=== PATIENT | male | born 1990 | race African-American/Black ===

== ENCOUNTER 2019-05-12 18:30 | Inpatient (IN) | payer MEDICAID ==
[2019-05-12] MEDS: LACTATED RINGER'S 1,000 ML IV (19:10)
[2019-05-12] MEDS: HYDROmorphONE 1 MG/ML SYG IV (19:10)
[2019-05-12] MEDS: BELLADONNA/PHENOBARBITAL TAB PO (19:10)
[2019-05-12] MEDS: SOD CHLORIDE 0.9% 1,000 ML IV ×2 (19:10→22:32)
[2019-05-12] MEDS: ONDANSETRON 4 MG INJ IV (19:10)
[2019-05-12] MEDS: LIDOCAINE/MYLANTA 40 ML BTL PO (19:10)
[2019-05-12 19:22] LABS: ADD MAN DIFF? NO
[2019-05-12 19:24] LABS: WHITE BLOOD COUNT 6.1 10^3/ul (4.8-10.8)
[2019-05-12 19:24] LABS: ABNORMAL IP MESSAGE 1; BASOPHILS % 0.2 % (0.0-2.0); HEMATOCRIT 34.2 % (42.0-52.0); HEMOGLOBIN 11.3 g/dl (14.0-18.0); LYMPHOCYTES # 0.3 10^3/ul (0.8-2.9); LYMPHOCYTES % 4.8 % (15.0-51.0); MEAN CORPUSCULAR HEMOGLOBIN 28.2 pg (29.0-33.0); MEAN CORPUSCULAR VOLUME 85.3 fl (82.0-101.0); MEAN PLATELET VOLUME 11.2 fl (7.4-10.4); MONOCYTE # 0.3 10^3/ul (0.3-0.9); MONOCYTES % 4.8 % (0.0-11.0); NEUTROPHIL # 5.5 10^3/ul (1.6-7.5); NEUTROPHILS % 89.9 % (39.0-77.0); PLATELET COUNT 209 10^3/UL (140-415); POSITIVE DIFF @See below; RED BLOOD COUNT 4.01 10^6/ul (4.70-6.10); RED CELL DISTRIBUTION WIDTH 12.9 % (11.5-14.5)
[2019-05-12 19:43] LABS: ALANINE AMINOTRANSFERASE 79 IU/L (13-69); ALBUMIN 4.1 g/dl (3.3-4.9); ALBUMIN/GLOBULIN RATIO 0.85; ALKALINE PHOSPHATASE 86 IU/L (42-121); ANION GAP 14 (5-13); ASPARTATE AMINO TRANSFERASE 93 IU/L (15-46); BILIRUBIN,INDIRECT 0.6 mg/dl (0-1.1); BILIRUBIN,TOTAL 0.6 mg/dl (0.2-1.3); BLOOD UREA NITROGEN 16 mg/dl (7-20); CALCIUM 9.7 mg/dl (8.4-10.2); CARBON DIOXIDE 25 mmol/L (21-31); CHLORIDE 98 mmol/L (97-110); Estimated GFR > 60 mL/min (>60); GLUCOSE 144 mg/dl (70-220); INR 0.99; LIPASE 79 U/L (23-300); POTASSIUM 3.7 mmol/L (3.5-5.1); PROTIME 13.2 Sec (11.9-14.9); SODIUM 137 mmol/L (135-144); TOTAL PROTEIN 8.9 g/dl (6.1-8.1)
[2019-05-12 19:44] LABS: PARTIAL THROMBOPLASTIN TIME 30.6 Sec (23.0-35.0)
[2019-05-12] MEDS: CEFTRIAXONE 1 GM/50 ML (PMX) 50 ML IVPB (20:31)
[2019-05-12 20:50] LABS: Allen Test ACCEPTAB; Arterial Base Excess 0.2 mmol/L (-3.0-3); Arterial Blood Gas Oxygen Sat 98.5 mmHG (95.0-98.0); Arterial COHb 0.3 % (0.0-3.0); Arterial HCO3 18.4 mmol/L (22.0-26.0); Arterial MetHb 0.2 % (0.0-1.5); Arterial pCO2 15.4 mmhg (35-45); MODE ROOM AIR; Site Left Radial
[2019-05-12] MEDS: AZITHROMYCIN 500MG/NS (PMX) 250 ML IVPB (21:07)
[2019-05-12] MEDS ORDERED: VANCOMYCIN IV PER PHARMACY XX (22:00)
[2019-05-12] MEDS ORDERED: NACL 0.9% 3 ML SYG IV (22:00)
[2019-05-12] MEDS: LORAZEPAM 2 MG INJ IV (22:13)
[2019-05-12 22:16] LABS: HAAIG REFLEX REFLEX FILED
[2019-05-12] MEDS: PIPER-TAZO 3.375 GM IV (PMX) 100 ML IVPB (22:33)
[2019-05-12] MEDS: TRIMETHOPRIM/SULFAMETHOX (DS) TAB PO (22:33)
[2019-05-12] MEDS: VANCOMYCIN 1 GM in 250 ML IVPB (23:10)
[2019-05-12 23:11] LABS: HEPATITIS B SURFACE ANTIGEN NEGATIVE (NEGATIVE)
[2019-05-12 23:26] LABS: HIV 1&2 ANTIBODY REACTIVE (NEGATIVE)
[2019-05-12 23:29] LABS: HEPATITIS B CORE ANTIBODY NEGATIVE (NEGATIVE); HEPATITIS C VIRAL ANTIBODY NEGATIVE (NEGATIVE)
[2019-05-12 23:30] LABS: HEPATITIS B SURFACE ANTIBODY POSITIVE (NEGATIVE)
[2019-05-13] MEDS: PIPER-TAZO 3.375 GM IV (PMX) 100 ML IVPB ×5 (01:40→23:51)
[2019-05-13] MEDS: HYDROmorphONE 0.5 MG/0.5 ML SYG IV (01:40)
[2019-05-13 05:57] LABS: ADD MAN DIFF? NO
[2019-05-13 05:57] LABS: WHITE BLOOD COUNT 4.7 10^3/ul (4.8-10.8)
[2019-05-13 05:58] LABS: ABNORMAL IP MESSAGE 1; BASOPHILS % 0.2 % (0.0-2.0); HEMATOCRIT 29.4 % (42.0-52.0); HEMOGLOBIN 9.5 g/dl (14.0-18.0); LYMPHOCYTES # 0.3 10^3/ul (0.8-2.9); LYMPHOCYTES % 7.2 % (15.0-51.0); MEAN CORPUSCULAR HEMOGLOBIN 28.3 pg (29.0-33.0); MEAN CORPUSCULAR HGB CONC 32.3 g/dl (32.0-37.0); MEAN CORPUSCULAR VOLUME 87.5 fl (82.0-101.0); MEAN PLATELET VOLUME 10.8 fl (7.4-10.4); MONOCYTE # 0.3 10^3/ul (0.3-0.9); MONOCYTES % 5.9 % (0.0-11.0); NEUTROPHIL # 4.1 10^3/ul (1.6-7.5); NEUTROPHILS % 86.5 % (39.0-77.0); PLATELET COUNT 180 10^3/UL (140-415); POSITIVE DIFF @See below; RED BLOOD COUNT 3.36 10^6/ul (4.70-6.10); RED CELL DISTRIBUTION WIDTH 13.2 % (11.5-14.5)
[2019-05-13 06:23] LABS: HEMOGLOBIN A1C 6.1 % (0-5.9)
[2019-05-13 06:38] LABS: ALANINE AMINOTRANSFERASE 67 IU/L (13-69); ALBUMIN 2.9 g/dl (3.3-4.9); ALBUMIN/GLOBULIN RATIO 0.72; ALKALINE PHOSPHATASE 60 IU/L (42-121); ANION GAP 7 (5-13); ASPARTATE AMINO TRANSFERASE 67 IU/L (15-46); BILIRUBIN,INDIRECT 0.2 mg/dl (0-1.1); BILIRUBIN,TOTAL 0.2 mg/dl (0.2-1.3); BLOOD UREA NITROGEN 13 mg/dl (7-20); CALCIUM 8.5 mg/dl (8.4-10.2); CARBON DIOXIDE 29 mmol/L (21-31); CHLORIDE 102 mmol/L (97-110); CREATININE 0.82 mg/dl (0.61-1.24); Estimated GFR > 60 mL/min (>60); GLUCOSE 110 mg/dl (70-220); MAGNESIUM 1.9 mg/dl (1.7-2.5); POTASSIUM 4.3 mmol/L (3.5-5.1); SODIUM 138 mmol/L (135-144); TOTAL PROTEIN 6.9 g/dl (6.1-8.1)
[2019-05-13 06:45] LABS: C-REACTIVE PROTEIN 6.4 mg/dl (0.0-0.9)
[2019-05-13 07:31] LABS: ERYTHROCYTE SEDIMENTATION RATE 83 mm/Hr (0-15)
[2019-05-13 07:44] LABS: PROCALCITONIN 0.18 ng/mL (0.00-0.10)
[2019-05-13] MEDS: ACETAMINOPHEN 325 MG TAB PO ×2 (08:18→16:01)
[2019-05-13] MEDS ORDERED: TRIMETHOPRIM/SULFAMETHOX (DS) TAB PO (09:00)
[2019-05-13] MEDS ORDERED: OLANZAPINE 2.5 MG TAB PO (09:00)
[2019-05-13] MEDS: AZITHROMYCIN 600 MG TAB PO ×2 (09:00→23:51)
[2019-05-13] MEDS ORDERED: EMTRICITABINE/TENOFOV ALAFENAM 1 EACH TABLET PO (09:00)
[2019-05-13] MEDS: ENOXAPARIN 40 MG/0.4 ML SYG SC (09:00)
[2019-05-13 09:16] LABS: AADO2 Arterial 28.8 mmHg (7.0-24.0); Arterial Base Excess -0.8 mmol/L (-3.0-3); Arterial Blood Gas Oxygen Sat 96.2 mmHG (95.0-98.0); Arterial COHb 0.3 % (0.0-3.0); Arterial Fraction of Oxyhgb 95.3 % (93.0-99.0); Arterial HCO3 22.4 mmol/L (22.0-26.0); Arterial MetHb 0.6 % (0.0-1.5); Arterial pCO2 31.1 mmhg (35-45); MODE ROOM AIR; Site Right Brachial
[2019-05-13] MEDS: DOLUTEGRAVIR SODIUM 50 MG TABLET PO (10:41)
[2019-05-13] MEDS: VANCOMYCIN 500 MG (PMX) 100 ML IVPB (10:41)
[2019-05-13] MEDS: TRIMETHOPRIM/SULFAMETHOXAZOLE 15 ML in DEXTROSE 5% 500 ML IVPB ×2 (13:17→21:48)
[2019-05-13] MEDS: SOD CHLORIDE 0.9% 1,000 ML IV ×2 (13:17→22:44)
[2019-05-13] MEDS: FLUCONAZOLE 400 MG/NS (PMX) 200 ML IVPB (15:56)
[2019-05-13] MEDS: OLANZAPINE 5 MG TAB PO (21:11)
[2019-05-13 22:04] LABS: VANCOMYCIN,TROUGH 5.3 ug/ml (10.0-20.0)
[2019-05-13] MEDS ORDERED: VANCOMYCIN 1 GM 250 ML IVPB (22:30)
[2019-05-13] MEDS: VANCOMYCIN 1 GM 250 ML IVPB (23:51)
[2019-05-14] MEDS: HYDROmorphONE 1 MG/ML SYG IV ×3 (02:56→20:35)
[2019-05-14] MEDS: TRIMETHOPRIM/SULFAMETHOXAZOLE 15 ML in DEXTROSE 5% 500 ML IVPB ×3 (05:12→21:37)
[2019-05-14] MEDS: PIPER-TAZO 3.375 GM IV (PMX) 100 ML IVPB ×3 (05:13→17:39)
[2019-05-14] MEDS: ENOXAPARIN 40 MG/0.4 ML SYG SC (09:00)
[2019-05-14] MEDS: VANCOMYCIN 1 GM 250 ML IVPB (09:48)
[2019-05-14 10:06] LABS: ADD MAN DIFF? NO
[2019-05-14 10:13] LABS: WHITE BLOOD COUNT 3.7 10^3/ul (4.8-10.8)
[2019-05-14 10:13] LABS: ABNORMAL IP MESSAGE 1; HEMATOCRIT 27.8 % (42.0-52.0); HEMOGLOBIN 8.9 g/dl (14.0-18.0); LYMPHOCYTES # 0.3 10^3/ul (0.8-2.9); LYMPHOCYTES % 8.5 % (15.0-51.0); MEAN CORPUSCULAR HEMOGLOBIN 27.6 pg (29.0-33.0); MEAN CORPUSCULAR VOLUME 86.1 fl (82.0-101.0); MEAN PLATELET VOLUME 10.6 fl (7.4-10.4); MONOCYTE # 0.2 10^3/ul (0.3-0.9); MONOCYTES % 5.5 % (0.0-11.0); NEUTROPHIL # 3.1 10^3/ul (1.6-7.5); NEUTROPHILS % 85.7 % (39.0-77.0); PLATELET COUNT 170 10^3/UL (140-415); RED BLOOD COUNT 3.23 10^6/ul (4.70-6.10); RED CELL DISTRIBUTION WIDTH 13.2 % (11.5-14.5)
[2019-05-14 10:48] LABS: ALANINE AMINOTRANSFERASE 50 IU/L (13-69); ALBUMIN 2.5 g/dl (3.3-4.9); ALBUMIN/GLOBULIN RATIO 0.75; ALKALINE PHOSPHATASE 46 IU/L (42-121); ANION GAP 6 (5-13); ASPARTATE AMINO TRANSFERASE 41 IU/L (15-46); BILIRUBIN,INDIRECT 0.3 mg/dl (0-1.1); BILIRUBIN,TOTAL 0.3 mg/dl (0.2-1.3); BLOOD UREA NITROGEN 8 mg/dl (7-20); CALCIUM 8.2 mg/dl (8.4-10.2); CARBON DIOXIDE 27 mmol/L (21-31); CHLORIDE 102 mmol/L (97-110); CREATININE 0.91 mg/dl (0.61-1.24); Estimated GFR > 60 mL/min (>60); GLUCOSE 109 mg/dl (70-220); IRON 22 ug/dl (35-150); POTASSIUM 3.8 mmol/L (3.5-5.1); SODIUM 135 mmol/L (135-144); TOTAL PROTEIN 5.8 g/dl (6.1-8.1)
[2019-05-14 10:56] LABS: VANCOMYCIN,TROUGH 6.7 ug/ml (10.0-20.0)
[2019-05-14 10:58] LABS: % IRON SATURATION 11 % SAT (22-52); TOTAL IRON BINDING CAPACITY 192 ug/dl (241-421)
[2019-05-14] MEDS: PANTOPRAZOLE (EC) 40 MG TAB PO (15:41)
[2019-05-14] MEDS: FLUCONAZOLE 400 MG/NS (PMX) 200 ML IVPB (15:41)
[2019-05-14] MEDS: VANCOMYCIN 500 MG (PMX) 100 ML IVPB (18:24)
[2019-05-14] MEDS: ONDANSETRON 4 MG INJ IV (18:29)
[2019-05-14 19:08] LABS: RAPID PLASMA REAGIN NONREACTIVE (NR)
[2019-05-14] MEDS: OLANZAPINE 5 MG TAB PO (20:34)
[2019-05-14] MEDS: NACL 3% FOR INHALATION 15 ML NEBU NEB (21:49)
[2019-05-14 21:54] LABS: S PNEUMONAIE AG DETECT SOURCE SERUM; S PNEUMONAIE AG DETECTION NOT DETECTED
[2019-05-14] MEDS: SODIUM CL 0.9% FOR INHALATION 5 ML NEBU INH (21:54)
[2019-05-14 22:31] LABS: SITE Left Upper Forearm; TIME 2225
[2019-05-14] MEDS: SOD CHLORIDE 0.9% 1,000 ML IV (23:44)
[2019-05-15] MEDS: PIPER-TAZO 3.375 GM IV (PMX) 100 ML IVPB ×4 (00:13→17:28)
[2019-05-15] MEDS: VANCOMYCIN 500 MG (PMX) 100 ML IVPB ×3 (02:10→17:29)
[2019-05-15] MEDS: HYDROmorphONE 1 MG/ML SYG IV (04:23)
[2019-05-15] MEDS: SODIUM CL 0.9% FOR INHALATION 5 ML NEBU INH (05:09)
[2019-05-15] MEDS: TRIMETHOPRIM/SULFAMETHOXAZOLE 15 ML in DEXTROSE 5% 500 ML IVPB ×3 (05:18→22:34)
[2019-05-15] MEDS: SOD CHLORIDE 0.9% 1,000 ML IV ×3 (05:18→13:14)
[2019-05-15 05:51] LABS: ADD MAN DIFF? NO
[2019-05-15 06:04] LABS: WHITE BLOOD COUNT 5.3 10^3/ul (4.8-10.8)
[2019-05-15 06:04] LABS: ABNORMAL IP MESSAGE 1; BASOPHILS % 0.2 % (0.0-2.0); EOSINOPHILS % 0.4 % (0.0-7.0); HEMATOCRIT 27.4 % (42.0-52.0); HEMOGLOBIN 8.8 g/dl (14.0-18.0); LYMPHOCYTES # 0.3 10^3/ul (0.8-2.9); LYMPHOCYTES % 5.2 % (15.0-51.0); MEAN CORPUSCULAR HEMOGLOBIN 27.7 pg (29.0-33.0); MEAN CORPUSCULAR HGB CONC 32.1 g/dl (32.0-37.0); MEAN CORPUSCULAR VOLUME 86.2 fl (82.0-101.0); MONOCYTE # 0.3 10^3/ul (0.3-0.9); MONOCYTES % 5.1 % (0.0-11.0); NEUTROPHIL # 4.7 10^3/ul (1.6-7.5); NEUTROPHILS % 88.7 % (39.0-77.0); PLATELET COUNT 179 10^3/UL (140-415); POSITIVE DIFF @See below; RED BLOOD COUNT 3.18 10^6/ul (4.70-6.10); RED CELL DISTRIBUTION WIDTH 13.4 % (11.5-14.5)
[2019-05-15] MEDS: PANTOPRAZOLE (EC) 40 MG TAB PO (06:28)
[2019-05-15 06:45] LABS: ALANINE AMINOTRANSFERASE 40 IU/L (13-69); ALBUMIN 2.9 g/dl (3.3-4.9); ALKALINE PHOSPHATASE 49 IU/L (42-121); ANION GAP 9 (5-13); ASPARTATE AMINO TRANSFERASE 26 IU/L (15-46); BILIRUBIN,INDIRECT 0.1 mg/dl (0-1.1); BILIRUBIN,TOTAL 0.1 mg/dl (0.2-1.3); BLOOD UREA NITROGEN 5 mg/dl (7-20); CALCIUM 8.5 mg/dl (8.4-10.2); CARBON DIOXIDE 25 mmol/L (21-31); CHLORIDE 103 mmol/L (97-110); CREATININE 0.88 mg/dl (0.61-1.24); Estimated GFR > 60 mL/min (>60); GLUCOSE 91 mg/dl (70-220); POTASSIUM 3.6 mmol/L (3.5-5.1); SODIUM 137 mmol/L (135-144); TOTAL PROTEIN 6.5 g/dl (6.1-8.1)
[2019-05-15] MEDS: ENOXAPARIN 40 MG/0.4 ML SYG SC (08:43)
[2019-05-15] MEDS: FLUCONAZOLE 400 MG/NS (PMX) 200 ML IVPB (13:14)
[2019-05-15] MEDS: HYDROmorphONE 0.5 MG/0.5 ML SYG IV ×2 (13:22→21:12)
[2019-05-15 17:45] LABS: VANCOMYCIN,TROUGH < 5.0 ug/ml (10.0-20.0)
[2019-05-15] MEDS: OLANZAPINE 5 MG TAB PO (21:10)
[2019-05-15] MEDS: VANCOMYCIN 750 MG (PMX) 250 ML IVPB (21:16)
[2019-05-16] MEDS: HYDROmorphONE 1 MG/ML SYG IV ×2 (00:09→12:27)
[2019-05-16] MEDS: TRIMETHOPRIM/SULFAMETHOXAZOLE 15 ML in DEXTROSE 5% 500 ML IVPB ×3 (04:56→20:57)
[2019-05-16] MEDS: PANTOPRAZOLE (EC) 40 MG TAB PO (05:10)
[2019-05-16] MEDS: PIPER-TAZO 3.375 GM IV (PMX) 100 ML IVPB ×4 (05:10→18:21)
[2019-05-16] MEDS ORDERED: FLUCYTOSINE (10 MG/ML PO SYG) PO (07:30)
[2019-05-16] MEDS: ENOXAPARIN 40 MG/0.4 ML SYG SC (09:00)
[2019-05-16] MEDS: ACETAMINOPHEN 325 MG TAB PO ×2 (09:25)
[2019-05-16] MEDS: DIPHENHYDRAMINE 25 MG CAP PO (09:25)
[2019-05-16] MEDS: AMPHOTERICIN B LIPOSOME 300 MG in DEXTROSE 5% 300 ML IVPB (10:20)
[2019-05-16 11:22] LABS: WHITE BLOOD COUNT 1.3 10^3/ul (4.8-10.8)
[2019-05-16 11:22] LABS: ABNORMAL IP MESSAGE 1; HEMATOCRIT 26.1 % (42.0-52.0); HEMOGLOBIN 8.5 g/dl (14.0-18.0); MEAN CORPUSCULAR HEMOGLOBIN 27.6 pg (29.0-33.0); MEAN CORPUSCULAR HGB CONC 32.6 g/dl (32.0-37.0); MEAN CORPUSCULAR VOLUME 84.7 fl (82.0-101.0); MEAN PLATELET VOLUME 11.1 fl (7.4-10.4); PLATELET COUNT 156 10^3/UL (140-415); POSITIVE DIFF @See below; RED BLOOD COUNT 3.08 10^6/ul (4.70-6.10); RED CELL DISTRIBUTION WIDTH 13.4 % (11.5-14.5)
[2019-05-16 11:29] LABS: ADD MAN DIFF? YES
[2019-05-16 11:40] LABS: ALANINE AMINOTRANSFERASE 37 IU/L (13-69); ALBUMIN 2.6 g/dl (3.3-4.9); ALBUMIN/GLOBULIN RATIO 0.74; ALKALINE PHOSPHATASE 49 IU/L (42-121); ANION GAP 9 (5-13); ASPARTATE AMINO TRANSFERASE 25 IU/L (15-46); BILIRUBIN,INDIRECT 0.2 mg/dl (0-1.1); BILIRUBIN,TOTAL 0.2 mg/dl (0.2-1.3); BLOOD UREA NITROGEN 3 mg/dl (7-20); CALCIUM 8.5 mg/dl (8.4-10.2); CARBON DIOXIDE 24 mmol/L (21-31); CHLORIDE 102 mmol/L (97-110); CREATININE 0.82 mg/dl (0.61-1.24); Estimated GFR > 60 mL/min (>60); GLUCOSE 99 mg/dl (70-220); POTASSIUM 3.4 mmol/L (3.5-5.1); SODIUM 135 mmol/L (135-144); TOTAL PROTEIN 6.1 g/dl (6.1-8.1)
[2019-05-16 12:46] LABS: BAND NEUTROPHILS #M 0.2 10^3/ul (0.0-0.6); BAND NEUTROPHILS % (M) 23 % (0-4); BASOPHILS % (M) 1 % (0-2); BURR CELLS 1+ (0-0); EOSINOPHILS % (M) 1 % (0-7); GIANT THROMBO% (M) 4 % (0-0); LYMPHOCYTES #M 0.1 10^3/ul (0.8-2.9); LYMPHOCYTES % (M) 15 % (15-51); MONOCYTES % (M) 5 % (0-11); MYELOCYTES % (M) 1 % (0-0); PLATELET ESTIMATE NORMAL; POIKILOCYTOSIS 1+ (0-0); REACTIVE LYMPHOCYTES% (M) 6 % (0-0); SEG NEUT #M 0.6 10^3/ul (1.6-7.5); SEGMENTED NEUTROPHILS (M) % 48 % (39-77); SMUDGE%M 10 % (0-0)
[2019-05-16] MEDS ORDERED: FLUCYTOSINE 250 MG CAPSULE PO (13:30)
[2019-05-16 14:31] LABS: LYMPHOCYTE - % CD4 (HELPER) 14 % (30-61); LYMPHOCYTE - %CD8 (SUPPRESSOR) 62 % (12-42); LYMPHOCYTE - ABSOLUTE 325 cells/uL (850-3900); LYMPHOCYTE - ABSOLUTE CD4 46 cells/uL (490-1740); LYMPHOCYTE - ABSOLUTE CD8 201 cells/uL (180-1170); LYMPHOCYTE - CD4/CD8 RATIO 0.23 (0.86-5.00)
[2019-05-16] MEDS: FLUCYTOSINE 250 MG CAPSULE PO ×2 (14:33→20:57)
[2019-05-16 17:22] LABS: CSF RBC 0 /uL (0-0); CSF WBC 1 /cmm (0-10); CSF WBC 2 /cmm (0-10)
[2019-05-16 17:38] LABS: CSF CLARITY CLEAR; CSF COLOR COLORLESS; CSF VOLUME 5.7 ml; CSF#TUBE COUNT TUBE#1; CSF#TUBES REC'D 3
[2019-05-16 17:39] LABS: CSF COLOR COLORLESS
[2019-05-16 17:39] LABS: CSF CLARITY CLEAR; CSF VOLUME 5.7 ml; CSF#TUBES REC'D 3
[2019-05-16 17:41] LABS: CSF#TUBE COUNT TUBE#4
[2019-05-16 18:18] LABS: TOTAL PROTEIN,CSF 35 mg/dl (12-60)
[2019-05-16 18:18] LABS: GLUCOSE,CSF 63 mg/dl (50-80)
[2019-05-16] MEDS: HYDROmorphONE 0.5 MG/0.5 ML SYG IV (18:22)
[2019-05-16 20:07] LABS: NIL 0.13 IU/mL; QUANTIFERON(R)-TB GOLD INDETERMINATE (NEGATIVE); TB2-NIL <0.00 IU/mL; TOXOPLASMA ANTIBODY <7.20 IU/mL
[2019-05-16] MEDS: OLANZAPINE 5 MG TAB PO (20:56)
[2019-05-16 22:13] LABS: FORTY EIGHT HOUR READING 0 mm (0-9)
[2019-05-17] MEDS: HYDROmorphONE 0.5 MG/0.5 ML SYG IV ×4 (00:59→21:32)
[2019-05-17] MEDS: PIPER-TAZO 3.375 GM IV (PMX) 100 ML IVPB ×4 (00:59→18:13)
[2019-05-17] MEDS: FLUCYTOSINE 250 MG CAPSULE PO ×2 (00:59→06:22)
[2019-05-17] MEDS: TRIMETHOPRIM/SULFAMETHOXAZOLE 15 ML in DEXTROSE 5% 500 ML IVPB ×3 (05:35→21:32)
[2019-05-17] MEDS: PANTOPRAZOLE (EC) 40 MG TAB PO (06:22)
[2019-05-17] MEDS: ACETAMINOPHEN 325 MG TAB PO ×2 (08:55→21:31)
[2019-05-17] MEDS: DIPHENHYDRAMINE 25 MG CAP PO (08:56)
[2019-05-17] MEDS: ENOXAPARIN 40 MG/0.4 ML SYG SC (09:00)
[2019-05-17] MEDS: AMPHOTERICIN B LIPOSOME 300 MG in DEXTROSE 5% 300 ML IVPB (09:40)
[2019-05-17 12:04] LABS: ADD UMIC NO; UR ASCORBIC ACID NEGATIVE (NEGATIVE); UR BILIRUBIN (Dip) NEGATIVE (NEGATIVE); UR BLOOD (Dip) NEGATIVE (NEGATIVE); UR CLARITY CLEAR (CLEAR); UR COLOR STRAW (YELLOW); UR GLUCOSE (Dip) NEGATIVE (NEGATIVE); UR KETONES (Dip) NEGATIVE (NEGATIVE); UR LEUKOCYTE ESTERASE (Dip) NEGATIVE Leu/ul (NEGATIVE); UR NITRITE (Dip) NEGATIVE (NEGATIVE); UR SPECIFIC GRAVITY (Dip) 1.009 (1.003-1.030); UR TOTAL PROTEIN (Dip) NEGATIVE (NEGATIVE); UR UROBILINOGEN (Dip) NEGATIVE (NEGATIVE)
[2019-05-17 12:20] LABS: AMPHETAMINE/METHAMPHETAMINE Negative (NEGATIVE); BARBITURATES Negative (NEGATIVE); BENZODIAZEPINES Negative (NEGATIVE); CANNABINOIDS Positive (NEGATIVE); COCAINE Negative (NEGATIVE); OPIATES Negative (NEGATIVE)
[2019-05-17 14:27] LABS: CRYPTOCOCCAL ANTIGEN - SOURCE SERUM; MYCOPLASMA PNEUMONIAE AB (IGG) 1.47
[2019-05-17] MEDS: DOCUSATE SODIUM 100 MG CAP PO (18:13)
[2019-05-17] MEDS ORDERED: DOCUSATE SODIUM 100 MG CAP PO (21:00)
[2019-05-17 21:08] LABS: SEVENTY TWO HOUR READING 0 mm (0-9)
[2019-05-17] MEDS: OLANZAPINE 5 MG TAB PO (21:30)
[2019-05-18] MEDS: PIPER-TAZO 3.375 GM IV (PMX) 100 ML IVPB ×5 (00:26→22:19)
[2019-05-18] MEDS: TRIMETHOPRIM/SULFAMETHOXAZOLE 15 ML in DEXTROSE 5% 500 ML IVPB ×3 (05:26→22:14)
[2019-05-18] MEDS: PANTOPRAZOLE (EC) 40 MG TAB PO (05:26)
[2019-05-18] MEDS: ONDANSETRON 4 MG INJ IV (08:14)
[2019-05-18] MEDS: HYDROmorphONE 1 MG/ML SYG IV ×4 (08:15→22:23)
[2019-05-18] MEDS: ENOXAPARIN 40 MG/0.4 ML SYG SC (08:15)
[2019-05-18] MEDS: ACETAMINOPHEN 325 MG TAB PO ×2 (09:55→10:25)
[2019-05-18] MEDS: DIPHENHYDRAMINE 25 MG CAP PO (09:55)
[2019-05-18] MEDS: FLUCONAZOLE 200 MG TAB PO (09:56)
[2019-05-18 13:37] LABS: CRYPTOCOCCAL ANTIGEN - SOURCE SERUM
[2019-05-18 17:47] LABS: ADD MAN DIFF? NO
[2019-05-18 17:49] LABS: WHITE BLOOD COUNT 4.9 10^3/ul (4.8-10.8)
[2019-05-18 17:49] LABS: ABNORMAL IP MESSAGE 1; BASOPHILS % 0.2 % (0.0-2.0); EOSINOPHILS % 0.2 % (0.0-7.0); HEMATOCRIT 25.7 % (42.0-52.0); HEMOGLOBIN 8.3 g/dl (14.0-18.0); LYMPHOCYTES # 0.6 10^3/ul (0.8-2.9); MEAN CORPUSCULAR HGB CONC 32.3 g/dl (32.0-37.0); MEAN CORPUSCULAR VOLUME 86.8 fl (82.0-101.0); MEAN PLATELET VOLUME 10.4 fl (7.4-10.4); MONOCYTE # 0.4 10^3/ul (0.3-0.9); MONOCYTES % 8.9 % (0.0-11.0); NEUTROPHIL # 3.8 10^3/ul (1.6-7.5); NEUTROPHILS % 78.3 % (39.0-77.0); PLATELET COUNT 227 10^3/UL (140-415); POSITIVE DIFF @See below; RED BLOOD COUNT 2.96 10^6/ul (4.70-6.10); RED CELL DISTRIBUTION WIDTH 13.8 % (11.5-14.5)
[2019-05-18 18:06] LABS: ANION GAP 10 (5-13); BLOOD UREA NITROGEN 8 mg/dl (7-20); CALCIUM 8.5 mg/dl (8.4-10.2); CARBON DIOXIDE 23 mmol/L (21-31); CHLORIDE 98 mmol/L (97-110); CREATININE 0.72 mg/dl (0.61-1.24); Estimated GFR > 60 mL/min (>60); GLUCOSE 95 mg/dl (70-220); POTASSIUM 3.1 mmol/L (3.5-5.1); SODIUM 131 mmol/L (135-144)
[2019-05-18 18:11] LABS: LACTIC ACID 2.2 mmol/L (0.5-2.0)
[2019-05-18] MEDS ORDERED: POTASSIUM CHLORIDE 20 MEQ POWDER FOR ORAL SOLN (18:53)
[2019-05-18 19:35] LABS: PNEUM JIROVECCI SRC SPUTUM; PNEUMOCYSTIS JIROVECCI DFA NOT DETECTED
[2019-05-18] MEDS: POTASSIUM CHLORIDE 20 MEQ POWDER FOR ORAL SOLN PO (20:47)
[2019-05-18] MEDS: OLANZAPINE 5 MG TAB PO (20:48)
[2019-05-18] MEDS: SOD CHLORIDE 0.9% 500 ML IV (22:14)
[2019-05-18 22:33] LABS: PROCALCITONIN 0.19 ng/mL (0.00-0.10)
[2019-05-19] MEDS: HYDROmorphONE 1 MG/ML SYG IV ×5 (02:27→21:35)
[2019-05-19] MEDS: PIPER-TAZO 3.375 GM IV (PMX) 100 ML IVPB ×2 (06:03→11:37)
[2019-05-19] MEDS: TRIMETHOPRIM/SULFAMETHOXAZOLE 15 ML in DEXTROSE 5% 500 ML IVPB ×3 (06:03→22:42)
[2019-05-19] MEDS: PANTOPRAZOLE (EC) 40 MG TAB PO (06:03)
[2019-05-19] MEDS: ONDANSETRON 4 MG INJ IV (07:48)
[2019-05-19 08:05] LABS: ADD MAN DIFF? NO
[2019-05-19 08:11] LABS: WHITE BLOOD COUNT 6.5 10^3/ul (4.8-10.8)
[2019-05-19 08:11] LABS: BASOPHILS % 0.2 % (0.0-2.0); EOSINOPHILS % 0.5 % (0.0-7.0); HEMATOCRIT 27.9 % (42.0-52.0); HEMOGLOBIN 8.9 g/dl (14.0-18.0); MEAN CORPUSCULAR HEMOGLOBIN 27.2 pg (29.0-33.0); MEAN CORPUSCULAR HGB CONC 31.9 g/dl (32.0-37.0); MEAN CORPUSCULAR VOLUME 85.3 fl (82.0-101.0); MEAN PLATELET VOLUME 10.6 fl (7.4-10.4); MONOCYTE # 0.5 10^3/ul (0.3-0.9); MONOCYTES % 8.1 % (0.0-11.0); NEUTROPHIL # 4.9 10^3/ul (1.6-7.5); NEUTROPHILS % 74.7 % (39.0-77.0); PLATELET COUNT 268 10^3/UL (140-415); RED BLOOD COUNT 3.27 10^6/ul (4.70-6.10); RED CELL DISTRIBUTION WIDTH 13.9 % (11.5-14.5)
[2019-05-19 08:42] LABS: Estimated GFR > 60 mL/min (>60)
[2019-05-19 08:52] LABS: BLOOD UREA NITROGEN 5 mg/dl (7-20); CARBON DIOXIDE 24 mmol/L (21-31); CHLORIDE 102 mmol/L (97-110); GLUCOSE 88 mg/dl (70-220); POTASSIUM 4.2 mmol/L (3.5-5.1)
[2019-05-19 08:53] LABS: ANION GAP 9 (5-13); SODIUM 135 mmol/L (135-144)
[2019-05-19 08:55] LABS: LACTIC ACID 2.3 mmol/L (0.5-2.0)
[2019-05-19] MEDS: ENOXAPARIN 40 MG/0.4 ML SYG SC (09:00)
[2019-05-19] MEDS: FLUCONAZOLE 200 MG TAB PO (09:04)
[2019-05-19] MEDS: DRONABINOL 2.5 MG CAP PO ×2 (11:37→21:29)
[2019-05-19] MEDS: IBUPROFEN 600 MG TAB PO (11:37)
[2019-05-19] MEDS: CALCIUM CARBONATE 500 MG CHEW TAB PO ×2 (13:31→18:01)
[2019-05-19 16:06] LABS: HISTOPLASMA GALACTOMANNAN AG U <0.5
[2019-05-19] MEDS: AMPHOTERICIN B LIPOSOME 300 MG in DEXTROSE 5% 300 ML IVPB (17:54)
[2019-05-19] MEDS: ACETAMINOPHEN 325 MG TAB PO (18:02)
[2019-05-19] MEDS ORDERED: DIPHENHYDRAMINE 25 MG CAP PO (19:00)
[2019-05-19] MEDS: OLANZAPINE 5 MG TAB PO (21:29)
[2019-05-20] MEDS: HYDROmorphONE 1 MG/ML SYG IV (04:06)
[2019-05-20] MEDS: TRIMETHOPRIM/SULFAMETHOXAZOLE 15 ML in DEXTROSE 5% 500 ML IVPB ×2 (05:17→13:00)
[2019-05-20] MEDS: PANTOPRAZOLE (EC) 40 MG TAB PO (05:20)
[2019-05-20] MEDS: ENOXAPARIN 40 MG/0.4 ML SYG SC (09:00)
[2019-05-20] MEDS: FLUCONAZOLE 200 MG TAB PO (09:03)
[2019-05-20] MEDS: CALCIUM CARBONATE 500 MG CHEW TAB PO ×2 (09:03→12:37)
[2019-05-20] MEDS: ONDANSETRON 4 MG INJ IV (09:06)
[2019-05-20] MEDS: DRONABINOL 2.5 MG CAP PO (09:06)
[2019-05-20] MEDS ORDERED: ALBUTEROL/IPRATROPIUM (NEB) 3 ML AMP HHN (10:00)
[2019-05-20] MEDS ORDERED: GUAIFENESIN 20 MG/ML 5ML CUP PO (10:00)
[2019-05-20] MEDS ORDERED: CEPASTAT LOZENGE MT (10:00)
[2019-05-20 10:30] LABS: ADD MAN DIFF? NO
[2019-05-20 10:32] LABS: ABNORMAL IP MESSAGE 1; HEMATOCRIT 24.3 % (42.0-52.0); LYMPHOCYTES # 0.4 10^3/ul (0.8-2.9); LYMPHOCYTES % 8.4 % (15.0-51.0); MEAN CORPUSCULAR HEMOGLOBIN 27.7 pg (29.0-33.0); MEAN CORPUSCULAR HGB CONC 32.9 g/dl (32.0-37.0); MEAN CORPUSCULAR VOLUME 84.1 fl (82.0-101.0); MEAN PLATELET VOLUME 10.5 fl (7.4-10.4); MONOCYTE # 0.2 10^3/ul (0.3-0.9); MONOCYTES % 4.8 % (0.0-11.0); NEUTROPHIL # 3.9 10^3/ul (1.6-7.5); NEUTROPHILS % 85.9 % (39.0-77.0); PLATELET COUNT 243 10^3/UL (140-415); POSITIVE DIFF @See below; RED BLOOD COUNT 2.89 10^6/ul (4.70-6.10); RED CELL DISTRIBUTION WIDTH 13.9 % (11.5-14.5)
[2019-05-20 10:32] LABS: WHITE BLOOD COUNT 4.6 10^3/ul (4.8-10.8)
[2019-05-20 10:57] LABS: ANION GAP 7 (5-13); BLOOD UREA NITROGEN 10 mg/dl (7-20); CALCIUM 8.7 mg/dl (8.4-10.2); CARBON DIOXIDE 25 mmol/L (21-31); CHLORIDE 98 mmol/L (97-110); CREATININE 0.85 mg/dl (0.61-1.24); Estimated GFR > 60 mL/min (>60); GLUCOSE 99 mg/dl (70-220); SODIUM 130 mmol/L (135-144)
[2019-05-20 10:58] LABS: PHOSPHORUS 3.2 mg/dl (2.5-4.9)
[2019-05-20 10:58] LABS: MAGNESIUM 1.3 mg/dl (1.7-2.5)
[2019-05-21] MEDS ORDERED: FLUCONAZOLE 200 MG TAB PO (09:00)
== END 2019-05-20 15:17 | disposition left against medical advice (07) | DRG 97 ==
LOC: 6WM 20:01 → E/R 18:30
PROC: 009U3ZX Drainage of Spinal Canal, Percutaneous Approach, Diagnostic (ICD-10-PCS; principal; 2019-05-16)
PROC: B01BYZZ Fluoroscopy of Spinal Cord using Other Contrast (ICD-10-PCS; 2019-05-16)
DX: B45.1 Cerebral cryptococcosis (principal); E43 Unspecified severe protein-calorie malnutrition; J18.8 Other pneumonia, unspecified organism; B20 Human immunodeficiency virus [HIV] disease; Z68.1 Body mass index [BMI] 19.9 or less, adult; C46.52 Kaposi's sarcoma of left lung; B49 Unspecified mycosis; D63.8 Anemia in other chronic diseases classified elsewhere; F31.9 Bipolar disorder, unspecified; F17.200 Nicotine dependence, unspecified, uncomplicated; K21.9 Gastro-esophageal reflux disease without esophagitis; R74.0 Nonspecific elevation of levels of transaminase and lactic acid dehydrogenase [LDH]; R11.2 Nausea with vomiting, unspecified; Z91.14 Patient's other noncompliance with medication regimen; Z59.0 Homelessness
CPT/HCPCS: 36415; 36600; 70450; 71045; 71250; 74176; 76705; 80048; 80053; 80202; 80307; 81003; 82040; 82042; 82306; 82728; 82784; 82803; 82945; 83036; 83540; 83605; 83615; 83625; 83690; 83735; 84100; 84145; 84157; 84166; 84443; 85025; 85610; 85651; 85730; 86140; 86360; 86403; 86480; 86580; 86592; 86635; 86641; 86701; 86703; 86704; 86706; 86709; 86738; 86777; 86780; 86803; 87015; 87040-91; 87070; 87081; 87102; 87116; 87210; 87281; 87340; 87385; 87536; 87556; 89051; 89220; 93005; 93306; 94640; 94664; 96361; 96374; 96375; 99285-25

== ENCOUNTER 2019-05-20 15:59 | Inpatient (IN) | payer MEDICAID ==
[2019-05-20] MEDS: ACETAMINOPHEN 325 MG TAB PO (16:42)
[2019-05-20] MEDS ORDERED: NACL 0.9% 3 ML SYG IV (19:30)
[2019-05-20] MEDS ORDERED: ALBUTEROL/IPRATROPIUM (NEB) 3 ML AMP HHN (19:30)
[2019-05-20] MEDS: ONDANSETRON 4 MG INJ IV (20:38)
[2019-05-20] MEDS: morphine 2 MG INJ IV (20:39)
[2019-05-20] MEDS: DRONABINOL 2.5 MG CAP PO (21:33)
[2019-05-20] MEDS: OLANZAPINE 2.5 MG TAB PO (21:33)
[2019-05-20] MEDS: AZITHROMYCIN 600 MG TAB PO (22:48)
[2019-05-20] MEDS: TRIMETHOPRIM/SULFAMETHOXAZOLE 15 ML in DEXTROSE 5% 500 ML IVPB (23:45)
[2019-05-21] MEDS: AMPHOTERICIN B LIPOSOME 300 MG in DEXTROSE 5% 300 ML IVPB (01:23)
[2019-05-21] MEDS: ACETAMINOPHEN 325 MG TAB PO ×2 (05:41→13:29)
[2019-05-21] MEDS: TRIMETHOPRIM/SULFAMETHOXAZOLE 15 ML in DEXTROSE 5% 500 ML IVPB ×3 (05:42→22:41)
[2019-05-21 06:33] LABS: ADD MAN DIFF? NO
[2019-05-21 06:35] LABS: WHITE BLOOD COUNT 6.1 10^3/ul (4.8-10.8)
[2019-05-21 06:35] LABS: ABNORMAL IP MESSAGE 1; BASOPHILS % 0.2 % (0.0-2.0); HEMATOCRIT 24.9 % (42.0-52.0); HEMOGLOBIN 8.2 g/dl (14.0-18.0); LYMPHOCYTES # 0.6 10^3/ul (0.8-2.9); LYMPHOCYTES % 9.1 % (15.0-51.0); MEAN CORPUSCULAR HEMOGLOBIN 27.9 pg (29.0-33.0); MEAN CORPUSCULAR HGB CONC 32.9 g/dl (32.0-37.0); MEAN CORPUSCULAR VOLUME 84.7 fl (82.0-101.0); MONOCYTE # 0.4 10^3/ul (0.3-0.9); MONOCYTES % 5.9 % (0.0-11.0); NEUTROPHIL # 5.2 10^3/ul (1.6-7.5); PLATELET COUNT 231 10^3/UL (140-415); POSITIVE DIFF @See below; RED BLOOD COUNT 2.94 10^6/ul (4.70-6.10); RED CELL DISTRIBUTION WIDTH 13.7 % (11.5-14.5)
[2019-05-21] MEDS: ONDANSETRON 4 MG INJ IV (06:35)
[2019-05-21] MEDS: morphine 2 MG INJ IV (06:35)
[2019-05-21 07:16] LABS: ANION GAP 10 (5-13); BLOOD UREA NITROGEN 15 mg/dl (7-20); CALCIUM 8.9 mg/dl (8.4-10.2); CARBON DIOXIDE 25 mmol/L (21-31); CHLORIDE 96 mmol/L (97-110); CREATININE 0.93 mg/dl (0.61-1.24); Estimated GFR > 60 mL/min (>60); GLUCOSE 97 mg/dl (70-220); MAGNESIUM 1.4 mg/dl (1.7-2.5); POTASSIUM 4.1 mmol/L (3.5-5.1); SODIUM 131 mmol/L (135-144)
[2019-05-21 08:13] LABS: HEMOGLOBIN A1C 6.1 % (0-5.9)
[2019-05-21] MEDS: FLUCONAZOLE 200 MG TAB PO (08:35)
[2019-05-21] MEDS: DRONABINOL 2.5 MG CAP PO (09:00)
[2019-05-21] MEDS: MAGNESIUM SULFATE 2 GM/50 ML 50 ML IVPB (11:19)
[2019-05-21] MEDS: NICOTINE (14 MG/24 HR) PATCH TRANSDERM (12:30)
[2019-05-21] MEDS: HYDROCODONE/APAP (5/325) TAB PO ×2 (15:32→22:39)
[2019-05-21] MEDS: FLUCYTOSINE 250 MG CAPSULE PO (18:07)
[2019-05-21] MEDS: NYSTATIN SUSP 5 ML CUP PO (20:05)
[2019-05-21] MEDS: OLANZAPINE 2.5 MG TAB PO (20:05)
[2019-05-22 00:12] LABS: ADD UMIC NO; UR ASCORBIC ACID NEGATIVE (NEGATIVE); UR BILIRUBIN (Dip) NEGATIVE (NEGATIVE); UR BLOOD (Dip) NEGATIVE (NEGATIVE); UR CLARITY CLEAR (CLEAR); UR COLOR YELLOW (YELLOW); UR GLUCOSE (Dip) NEGATIVE (NEGATIVE); UR KETONES (Dip) NEGATIVE (NEGATIVE); UR LEUKOCYTE ESTERASE (Dip) NEGATIVE Leu/ul (NEGATIVE); UR NITRITE (Dip) NEGATIVE (NEGATIVE); UR SPECIFIC GRAVITY (Dip) 1.008 (1.003-1.030); UR TOTAL PROTEIN (Dip) NEGATIVE (NEGATIVE); UR UROBILINOGEN (Dip) NEGATIVE (NEGATIVE)
[2019-05-22] MEDS: AMPHOTERICIN B LIPOSOME 300 MG in DEXTROSE 5% 300 ML IVPB ×2 (00:14→23:28)
[2019-05-22] MEDS: FLUCYTOSINE 250 MG CAPSULE PO ×4 (00:15→18:27)
[2019-05-22] MEDS: TRIMETHOPRIM/SULFAMETHOXAZOLE 15 ML in DEXTROSE 5% 500 ML IVPB ×2 (05:31→13:01)
[2019-05-22] MEDS: HYDROCODONE/APAP (5/325) TAB PO ×2 (05:31→19:52)
[2019-05-22] MEDS: ONDANSETRON 4 MG INJ IV ×3 (05:39→19:51)
[2019-05-22 05:45] LABS: ADD MAN DIFF? NO
[2019-05-22 05:59] LABS: WHITE BLOOD COUNT 3.9 10^3/ul (4.8-10.8)
[2019-05-22 05:59] LABS: ABNORMAL IP MESSAGE 1; HEMATOCRIT 24.9 % (42.0-52.0); HEMOGLOBIN 8.3 g/dl (14.0-18.0); LYMPHOCYTES # 0.4 10^3/ul (0.8-2.9); LYMPHOCYTES % 10.9 % (15.0-51.0); MEAN CORPUSCULAR HEMOGLOBIN 27.9 pg (29.0-33.0); MEAN CORPUSCULAR HGB CONC 33.3 g/dl (32.0-37.0); MEAN CORPUSCULAR VOLUME 83.6 fl (82.0-101.0); MEAN PLATELET VOLUME 10.8 fl (7.4-10.4); MONOCYTE # 0.2 10^3/ul (0.3-0.9); MONOCYTES % 3.9 % (0.0-11.0); NEUTROPHIL # 3.3 10^3/ul (1.6-7.5); NEUTROPHILS % 84.7 % (39.0-77.0); PLATELET COUNT 242 10^3/UL (140-415); POSITIVE DIFF @See below; RED BLOOD COUNT 2.98 10^6/ul (4.70-6.10); RED CELL DISTRIBUTION WIDTH 13.8 % (11.5-14.5)
[2019-05-22 06:08] LABS: LACTIC ACID 0.9 mmol/L (0.5-2.0)
[2019-05-22 06:17] LABS: ANION GAP 8 (5-13); BLOOD UREA NITROGEN 13 mg/dl (7-20); CALCIUM 8.7 mg/dl (8.4-10.2); CARBON DIOXIDE 27 mmol/L (21-31); CHLORIDE 96 mmol/L (97-110); CREATININE 0.88 mg/dl (0.61-1.24); Estimated GFR > 60 mL/min (>60); GLUCOSE 98 mg/dl (70-220); MAGNESIUM 1.8 mg/dl (1.7-2.5); PHOSPHORUS 5.3 mg/dl (2.5-4.9); POTASSIUM 4.6 mmol/L (3.5-5.1); SODIUM 131 mmol/L (135-144)
[2019-05-22 06:58] LABS: PROSTATE SPECIFIC ANTIGEN 0.4 ng/ml (0.0-4.0)
[2019-05-22] MEDS: NYSTATIN SUSP 5 ML CUP PO ×4 (08:21→19:52)
[2019-05-22] MEDS: NICOTINE (14 MG/24 HR) PATCH TRANSDERM (08:21)
[2019-05-22] MEDS: ENOXAPARIN 40 MG/0.4 ML SYG SC (08:25)
[2019-05-22] MEDS: OLANZAPINE 2.5 MG TAB PO (19:52)
[2019-05-23] MEDS: FLUCYTOSINE 250 MG CAPSULE PO ×4 (00:09→20:34)
[2019-05-23] MEDS: ONDANSETRON 4 MG INJ IV ×3 (04:13→16:19)
[2019-05-23] MEDS: HYDROCODONE/APAP (5/325) TAB PO ×2 (04:13→10:31)
[2019-05-23] MEDS: ENOXAPARIN 40 MG/0.4 ML SYG SC (09:00)
[2019-05-23] MEDS: NICOTINE (14 MG/24 HR) PATCH TRANSDERM (09:00)
[2019-05-23] MEDS: NYSTATIN SUSP 5 ML CUP PO ×4 (09:09→19:51)
[2019-05-23] MEDS: TRIMETHOPRIM/SULFAMETHOX (DS) TAB PO (09:09)
[2019-05-23 14:31] LABS: ADD MAN DIFF? NO
[2019-05-23 14:34] LABS: WHITE BLOOD COUNT 3.8 10^3/ul (4.8-10.8)
[2019-05-23 14:34] LABS: ABNORMAL IP MESSAGE 1; BASOPHILS % 0.3 % (0.0-2.0); HEMOGLOBIN 8.5 g/dl (14.0-18.0); LYMPHOCYTES # 0.4 10^3/ul (0.8-2.9); MEAN CORPUSCULAR HEMOGLOBIN 27.3 pg (29.0-33.0); MEAN CORPUSCULAR HGB CONC 32.7 g/dl (32.0-37.0); MEAN CORPUSCULAR VOLUME 83.6 fl (82.0-101.0); MONOCYTE # 0.2 10^3/ul (0.3-0.9); NEUTROPHIL # 3.2 10^3/ul (1.6-7.5); NEUTROPHILS % 83.2 % (39.0-77.0); PLATELET COUNT 197 10^3/UL (140-415); POSITIVE DIFF @See below; RED BLOOD COUNT 3.11 10^6/ul (4.70-6.10); RED CELL DISTRIBUTION WIDTH 13.8 % (11.5-14.5)
[2019-05-23 14:59] LABS: ANION GAP 11 (5-13); BLOOD UREA NITROGEN 17 mg/dl (7-20); CALCIUM 9.1 mg/dl (8.4-10.2); CARBON DIOXIDE 23 mmol/L (21-31); CHLORIDE 93 mmol/L (97-110); CREATININE 1.11 mg/dl (0.61-1.24); Estimated GFR > 60 mL/min (>60); GLUCOSE 122 mg/dl (70-220); POTASSIUM 4.1 mmol/L (3.5-5.1); SODIUM 127 mmol/L (135-144)
[2019-05-23] MEDS: morphine 2 MG INJ IV (15:31)
[2019-05-23] MEDS: OLANZAPINE 2.5 MG TAB PO (19:51)
[2019-05-23] MEDS: ACETAMINOPHEN 325 MG TAB PO (20:34)
[2019-05-24] MEDS: AMPHOTERICIN B LIPOSOME 300 MG in DEXTROSE 5% 300 ML IVPB (00:21)
[2019-05-24] MEDS: ONDANSETRON 4 MG INJ IV ×4 (00:21→17:51)
[2019-05-24] MEDS: HYDROCODONE/APAP (5/325) TAB PO ×2 (00:21→09:41)
[2019-05-24] MEDS: FLUCYTOSINE 250 MG CAPSULE PO ×4 (00:22→17:01)
[2019-05-24] MEDS: ACETAMINOPHEN 325 MG TAB PO ×2 (04:57→18:54)
[2019-05-24 06:17] LABS: ADD MAN DIFF? NO
[2019-05-24 06:20] LABS: BASOPHILS % 0.2 % (0.0-2.0); HEMATOCRIT 28.8 % (42.0-52.0); HEMOGLOBIN 9.5 g/dl (14.0-18.0); LYMPHOCYTES # 0.8 10^3/ul (0.8-2.9); LYMPHOCYTES % 11.8 % (15.0-51.0); MEAN CORPUSCULAR HEMOGLOBIN 28.3 pg (29.0-33.0); MEAN CORPUSCULAR VOLUME 85.7 fl (82.0-101.0); MEAN PLATELET VOLUME 11.5 fl (7.4-10.4); MONOCYTE # 0.3 10^3/ul (0.3-0.9); MONOCYTES % 5.1 % (0.0-11.0); NEUTROPHIL # 5.4 10^3/ul (1.6-7.5); NEUTROPHILS % 82.6 % (39.0-77.0); PLATELET COUNT 208 10^3/UL (140-415); RED BLOOD COUNT 3.36 10^6/ul (4.70-6.10); RED CELL DISTRIBUTION WIDTH 13.6 % (11.5-14.5)
[2019-05-24 06:20] LABS: WHITE BLOOD COUNT 6.5 10^3/ul (4.8-10.8)
[2019-05-24 06:56] LABS: ANION GAP 10 (5-13); BLOOD UREA NITROGEN 17 mg/dl (7-20); CALCIUM 9.4 mg/dl (8.4-10.2); CARBON DIOXIDE 24 mmol/L (21-31); CHLORIDE 92 mmol/L (97-110); CREATININE 1.12 mg/dl (0.61-1.24); Estimated GFR > 60 mL/min (>60); GLUCOSE 110 mg/dl (70-220); POTASSIUM 4.7 mmol/L (3.5-5.1); SODIUM 126 mmol/L (135-144)
[2019-05-24] MEDS: NICOTINE (14 MG/24 HR) PATCH TRANSDERM (08:37)
[2019-05-24] MEDS: ENOXAPARIN 40 MG/0.4 ML SYG SC (08:37)
[2019-05-24] MEDS: NYSTATIN SUSP 5 ML CUP PO ×4 (09:40→20:26)
[2019-05-24] MEDS: TRIMETHOPRIM/SULFAMETHOX (DS) TAB PO (09:40)
[2019-05-24 13:41] LABS: LACTIC ACID 1.4 mmol/L (0.5-2.0)
[2019-05-24] MEDS: morphine 2 MG INJ IV (17:51)
[2019-05-24 18:09] LABS: ADD UMIC NO; UR ASCORBIC ACID NEGATIVE (NEGATIVE); UR BILIRUBIN (Dip) NEGATIVE (NEGATIVE); UR BLOOD (Dip) NEGATIVE (NEGATIVE); UR CLARITY CLEAR (CLEAR); UR COLOR YELLOW (YELLOW); UR GLUCOSE (Dip) NEGATIVE (NEGATIVE); UR KETONES (Dip) NEGATIVE (NEGATIVE); UR LEUKOCYTE ESTERASE (Dip) NEGATIVE Leu/ul (NEGATIVE); UR NITRITE (Dip) NEGATIVE (NEGATIVE); UR SPECIFIC GRAVITY (Dip) 1.011 (1.003-1.030); UR TOTAL PROTEIN (Dip) NEGATIVE (NEGATIVE); UR UROBILINOGEN (Dip) 1+ mg/dL (NEGATIVE)
[2019-05-24 18:19] LABS: CREATININE,URINE RANDOM 53.22 mg/dl (20-370)
[2019-05-24 18:19] LABS: SODIUM,URINE RANDOM 40 mmol/L (30-90)
[2019-05-24 19:33] LABS: OSMOLALITY,URINE 309 mOsm/kg (250-1200)
[2019-05-24] MEDS: OLANZAPINE 2.5 MG TAB PO (20:26)
[2019-05-24 21:55] LABS: URIC ACID 2.8 mg/dl (3.1-7.9)
[2019-05-25] MEDS: AMPHOTERICIN B LIPOSOME 300 MG in DEXTROSE 5% 300 ML IVPB (00:01)
[2019-05-25] MEDS: ZOLPIDEM 5 MG TAB PO (00:18)
[2019-05-25] MEDS: FLUCYTOSINE 250 MG CAPSULE PO ×4 (01:43→18:00)
[2019-05-25] MEDS: ONDANSETRON 4 MG INJ IV ×3 (06:11→20:35)
[2019-05-25] MEDS: NICOTINE (14 MG/24 HR) PATCH TRANSDERM (09:00)
[2019-05-25] MEDS: ENOXAPARIN 40 MG/0.4 ML SYG SC (09:00)
[2019-05-25] MEDS: SODIUM CHLORIDE 1 GM TAB PO ×3 (09:01→20:35)
[2019-05-25] MEDS: TRIMETHOPRIM/SULFAMETHOX (DS) TAB PO (09:01)
[2019-05-25] MEDS: NYSTATIN SUSP 5 ML CUP PO ×4 (09:02→20:35)
[2019-05-25 09:13] LABS: ADD MAN DIFF? NO
[2019-05-25 09:17] LABS: ABNORMAL IP MESSAGE 1; EOSINOPHILS % 0.2 % (0.0-7.0); HEMATOCRIT 25.2 % (42.0-52.0); HEMOGLOBIN 8.4 g/dl (14.0-18.0); LYMPHOCYTES # 0.5 10^3/ul (0.8-2.9); LYMPHOCYTES % 10.5 % (15.0-51.0); MEAN CORPUSCULAR HEMOGLOBIN 28.1 pg (29.0-33.0); MEAN CORPUSCULAR HGB CONC 33.3 g/dl (32.0-37.0); MEAN CORPUSCULAR VOLUME 84.3 fl (82.0-101.0); MEAN PLATELET VOLUME 11.6 fl (7.4-10.4); MONOCYTE # 0.4 10^3/ul (0.3-0.9); MONOCYTES % 7.6 % (0.0-11.0); NEUTROPHIL # 4.1 10^3/ul (1.6-7.5); NEUTROPHILS % 81.5 % (39.0-77.0); PLATELET COUNT 191 10^3/UL (140-415); POSITIVE DIFF @See below; RED BLOOD COUNT 2.99 10^6/ul (4.70-6.10); RED CELL DISTRIBUTION WIDTH 13.4 % (11.5-14.5)
[2019-05-25] MEDS: morphine 2 MG INJ IV (09:17)
[2019-05-25 09:44] LABS: ANION GAP 9 (5-13); Estimated GFR > 60 mL/min (>60)
[2019-05-25 10:04] LABS: BLOOD UREA NITROGEN 24 mg/dl (7-20); CARBON DIOXIDE 24 mmol/L (21-31); CHLORIDE 94 mmol/L (97-110); CREATININE 1.45 mg/dl (0.61-1.24); GLUCOSE 106 mg/dl (70-220); POTASSIUM 4.7 mmol/L (3.5-5.1); SODIUM 127 mmol/L (135-144)
[2019-05-25] MEDS ORDERED: CALCIUM CARBONATE 500 MG CHEW TAB PO (14:00)
[2019-05-25 16:56] LABS: CREATININE, RANDOM URINE 58 mg/dL (20-320); MICROALBUMIN 0.6 mg/dL; MICROALBUMIN/CREATININE RATIO 10 (<30)
[2019-05-25] MEDS: OLANZAPINE 2.5 MG TAB PO (20:35)
[2019-05-25] MEDS: ACETAMINOPHEN 325 MG TAB PO (20:44)
[2019-05-25] MEDS ORDERED: morphine 2 MG INJ IV (22:30)
[2019-05-26] MEDS: AMPHOTERICIN B LIPOSOME 300 MG in DEXTROSE 5% 300 ML IVPB (00:40)
[2019-05-26] MEDS: HYDROCODONE/APAP (5/325) TAB PO ×3 (00:44→22:06)
[2019-05-26] MEDS: FLUCYTOSINE 250 MG CAPSULE PO ×2 (06:00)
[2019-05-26] MEDS: TRIMETHOPRIM/SULFAMETHOX (DS) TAB PO ×2 (08:50→11:15)
[2019-05-26] MEDS: NYSTATIN SUSP 5 ML CUP PO ×5 (08:50→20:54)
[2019-05-26] MEDS: SODIUM CHLORIDE 1 GM TAB PO ×4 (08:50→20:54)
[2019-05-26] MEDS: ONDANSETRON 4 MG INJ IV ×2 (10:32→20:34)
[2019-05-26 11:06] LABS: ADD MAN DIFF? NO
[2019-05-26 11:11] LABS: ABNORMAL IP MESSAGE 1; EOSINOPHILS % 0.2 % (0.0-7.0); HEMATOCRIT 26.2 % (42.0-52.0); HEMOGLOBIN 8.5 g/dl (14.0-18.0); LYMPHOCYTES # 0.3 10^3/ul (0.8-2.9); LYMPHOCYTES % 7.4 % (15.0-51.0); MEAN CORPUSCULAR HEMOGLOBIN 27.4 pg (29.0-33.0); MEAN CORPUSCULAR HGB CONC 32.4 g/dl (32.0-37.0); MEAN CORPUSCULAR VOLUME 84.5 fl (82.0-101.0); MONOCYTE # 0.4 10^3/ul (0.3-0.9); MONOCYTES % 9.2 % (0.0-11.0); NEUTROPHIL # 3.7 10^3/ul (1.6-7.5); PLATELET COUNT 209 10^3/UL (140-415); POSITIVE DIFF @See below; RED CELL DISTRIBUTION WIDTH 13.4 % (11.5-14.5)
[2019-05-26 11:11] LABS: WHITE BLOOD COUNT 4.5 10^3/ul (4.8-10.8)
[2019-05-26 11:32] LABS: ANION GAP 9 (5-13); BLOOD UREA NITROGEN 24 mg/dl (7-20); CALCIUM 9.3 mg/dl (8.4-10.2); CARBON DIOXIDE 25 mmol/L (21-31); CHLORIDE 97 mmol/L (97-110); CREATININE 1.59 mg/dl (0.61-1.24); Estimated GFR > 60 mL/min (>60); GLUCOSE 135 mg/dl (70-220); POTASSIUM 4.5 mmol/L (3.5-5.1); SODIUM 131 mmol/L (135-144)
[2019-05-26] MEDS: FLUCONAZOLE 200 MG TAB PO (17:28)
[2019-05-26] MEDS: OLANZAPINE 2.5 MG TAB PO (20:54)
[2019-05-27] MEDS: SODIUM CHLORIDE 1 GM TAB PO ×3 (09:06→21:06)
[2019-05-27] MEDS: FLUCONAZOLE 200 MG TAB PO (09:06)
[2019-05-27] MEDS: NYSTATIN SUSP 5 ML CUP PO ×4 (09:06→21:05)
[2019-05-27] MEDS: TRIMETHOPRIM/SULFAMETHOX (DS) TAB PO (09:06)
[2019-05-27] MEDS: ONDANSETRON 4 MG INJ IV ×2 (11:43→22:35)
[2019-05-27] MEDS: HYDROCODONE/APAP (5/325) TAB PO (13:55)
[2019-05-27 14:57] LABS: ANION GAP 8 (5-13); BLOOD UREA NITROGEN 24 mg/dl (7-20); CARBON DIOXIDE 25 mmol/L (21-31); CHLORIDE 98 mmol/L (97-110); CREATININE 1.41 mg/dl (0.61-1.24); Estimated GFR > 60 mL/min (>60); GLUCOSE 101 mg/dl (70-220); MAGNESIUM 1.7 mg/dl (1.7-2.5); PHOSPHORUS 5.1 mg/dl (2.5-4.9); POTASSIUM 4.8 mmol/L (3.5-5.1); SODIUM 131 mmol/L (135-144)
[2019-05-27] MEDS: AZITHROMYCIN 600 MG TAB PO (21:06)
[2019-05-27] MEDS: OLANZAPINE 2.5 MG TAB PO (21:06)
[2019-05-28 05:49] LABS: ANION GAP 9 (5-13); BLOOD UREA NITROGEN 26 mg/dl (7-20); CALCIUM 9.2 mg/dl (8.4-10.2); CARBON DIOXIDE 25 mmol/L (21-31); CHLORIDE 98 mmol/L (97-110); CREATININE 1.43 mg/dl (0.61-1.24); Estimated GFR > 60 mL/min (>60); GLUCOSE 103 mg/dl (70-220); MAGNESIUM 1.8 mg/dl (1.7-2.5); PHOSPHORUS 5.1 mg/dl (2.5-4.9); SODIUM 132 mmol/L (135-144)
[2019-05-28] MEDS: ONDANSETRON 4 MG INJ IV (09:40)
[2019-05-28] MEDS: SODIUM CHLORIDE 1 GM TAB PO ×3 (10:16→21:18)
[2019-05-28] MEDS: TRIMETHOPRIM/SULFAMETHOX (DS) TAB PO (10:16)
[2019-05-28] MEDS: NYSTATIN SUSP 5 ML CUP PO ×4 (10:16→21:19)
[2019-05-28] MEDS: FLUCONAZOLE 200 MG TAB PO (10:24)
[2019-05-28] MEDS: HYDROCODONE/APAP (5/325) TAB PO ×2 (15:37→21:18)
[2019-05-28] MEDS: OLANZAPINE 2.5 MG TAB PO (21:18)
[2019-05-28] MEDS: DOCUSATE SODIUM 100 MG CAP PO (21:18)
[2019-05-29] MEDS: TRIMETHOPRIM/SULFAMETHOX (DS) TAB PO (09:09)
[2019-05-29] MEDS: FLUCONAZOLE 200 MG TAB PO (09:09)
[2019-05-29] MEDS: SODIUM CHLORIDE 1 GM TAB PO ×3 (09:10→22:29)
[2019-05-29] MEDS: NYSTATIN SUSP 5 ML CUP PO ×4 (09:10→22:29)
[2019-05-29] MEDS: ONDANSETRON 4 MG INJ IV (09:15)
[2019-05-29 10:14] LABS: ADD MAN DIFF? NO
[2019-05-29 10:25] LABS: ABNORMAL IP MESSAGE 1; BASOPHILS % 0.5 % (0.0-2.0); EOSINOPHILS # 0.1 10^3/ul (0.0-0.5); HEMATOCRIT 24.1 % (42.0-52.0); HEMOGLOBIN 7.8 g/dl (14.0-18.0); LYMPHOCYTES # 0.3 10^3/ul (0.8-2.9); LYMPHOCYTES % 7.7 % (15.0-51.0); MEAN CORPUSCULAR HEMOGLOBIN 27.7 pg (29.0-33.0); MEAN CORPUSCULAR HGB CONC 32.4 g/dl (32.0-37.0); MEAN CORPUSCULAR VOLUME 85.5 fl (82.0-101.0); MEAN PLATELET VOLUME 10.3 fl (7.4-10.4); MONOCYTE # 0.5 10^3/ul (0.3-0.9); MONOCYTES % 12.9 % (0.0-11.0); NEUTROPHIL # 3.1 10^3/ul (1.6-7.5); NEUTROPHILS % 75.4 % (39.0-77.0); PLATELET COUNT 305 10^3/UL (140-415); POSITIVE DIFF @See below; RED BLOOD COUNT 2.82 10^6/ul (4.70-6.10); RED CELL DISTRIBUTION WIDTH 14.1 % (11.5-14.5)
[2019-05-29 10:49] LABS: ALANINE AMINOTRANSFERASE 40 IU/L (13-69); ALKALINE PHOSPHATASE 108 IU/L (42-121); ASPARTATE AMINO TRANSFERASE 31 IU/L (15-46); TOTAL PROTEIN 6.8 g/dl (6.1-8.1)
[2019-05-29 10:52] LABS: ANION GAP 8 (5-13); BLOOD UREA NITROGEN 22 mg/dl (7-20); CALCIUM 9.3 mg/dl (8.4-10.2); CARBON DIOXIDE 26 mmol/L (21-31); CHLORIDE 100 mmol/L (97-110); CREATININE 1.26 mg/dl (0.61-1.24); Estimated GFR > 60 mL/min (>60); GLUCOSE 94 mg/dl (70-220); SODIUM 134 mmol/L (135-144)
[2019-05-29] MEDS: HYDROCODONE/APAP (5/325) TAB PO ×2 (11:21→22:33)
[2019-05-29 14:17] LABS: HEMATOCRIT 24.1 % (42.0-52.0); HEMOGLOBIN 7.7 g/dl (14.0-18.0)
[2019-05-29] MEDS: OLANZAPINE 2.5 MG TAB PO (22:29)
[2019-05-30 06:19] LABS: ADD MAN DIFF? NO
[2019-05-30 06:29] LABS: WHITE BLOOD COUNT 3.3 10^3/ul (4.8-10.8)
[2019-05-30 06:29] LABS: ABNORMAL IP MESSAGE 1; BASOPHILS % 0.6 % (0.0-2.0); EOSINOPHILS # 0.1 10^3/ul (0.0-0.5); HEMATOCRIT 24.8 % (42.0-52.0); HEMOGLOBIN 7.9 g/dl (14.0-18.0); LYMPHOCYTES # 0.5 10^3/ul (0.8-2.9); LYMPHOCYTES % 15.8 % (15.0-51.0); MEAN CORPUSCULAR HEMOGLOBIN 27.8 pg (29.0-33.0); MEAN CORPUSCULAR HGB CONC 31.9 g/dl (32.0-37.0); MEAN CORPUSCULAR VOLUME 87.3 fl (82.0-101.0); MEAN PLATELET VOLUME 10.2 fl (7.4-10.4); MONOCYTE # 0.5 10^3/ul (0.3-0.9); MONOCYTES % 15.2 % (0.0-11.0); NEUTROPHIL # 2.1 10^3/ul (1.6-7.5); NEUTROPHILS % 64.2 % (39.0-77.0); PLATELET COUNT 324 10^3/UL (140-415); POSITIVE DIFF @See below; RED BLOOD COUNT 2.84 10^6/ul (4.70-6.10)
[2019-05-30 06:58] LABS: ANION GAP 8 (5-13); BLOOD UREA NITROGEN 22 mg/dl (7-20); CALCIUM 9.5 mg/dl (8.4-10.2); CARBON DIOXIDE 26 mmol/L (21-31); CHLORIDE 100 mmol/L (97-110); CREATININE 1.36 mg/dl (0.61-1.24); Estimated GFR > 60 mL/min (>60); GLUCOSE 97 mg/dl (70-220); MAGNESIUM 1.6 mg/dl (1.7-2.5); PHOSPHORUS 5.6 mg/dl (2.5-4.9); POTASSIUM 5.3 mmol/L (3.5-5.1); SODIUM 134 mmol/L (135-144)
[2019-05-30 07:07] LABS: ADD UMIC NO; UR ASCORBIC ACID NEGATIVE (NEGATIVE); UR BILIRUBIN (Dip) NEGATIVE (NEGATIVE); UR BLOOD (Dip) NEGATIVE (NEGATIVE); UR CLARITY CLEAR (CLEAR); UR COLOR YELLOW (YELLOW); UR GLUCOSE (Dip) NEGATIVE (NEGATIVE); UR KETONES (Dip) NEGATIVE (NEGATIVE); UR LEUKOCYTE ESTERASE (Dip) NEGATIVE Leu/ul (NEGATIVE); UR NITRITE (Dip) NEGATIVE (NEGATIVE); UR SPECIFIC GRAVITY (Dip) 1.012 (1.003-1.030); UR TOTAL PROTEIN (Dip) NEGATIVE (NEGATIVE); UR UROBILINOGEN (Dip) 1+ mg/dL (NEGATIVE)
[2019-05-30 07:45] LABS: SODIUM,URINE RANDOM 118 mmol/L (30-90)
[2019-05-30 07:45] LABS: CREATININE,URINE RANDOM 57.71 mg/dl (20-370)
[2019-05-30] MEDS: SODIUM CHLORIDE 1 GM TAB PO ×3 (08:49→21:16)
[2019-05-30] MEDS: NYSTATIN SUSP 5 ML CUP PO ×4 (08:50→21:00)
[2019-05-30] MEDS: TRIMETHOPRIM/SULFAMETHOX (DS) TAB PO (08:50)
[2019-05-30] MEDS: FLUCONAZOLE 200 MG TAB PO (08:50)
[2019-05-30] MEDS: MAGNESIUM SULFATE 2 GM/50 ML 50 ML IVPB (08:50)
[2019-05-30] MEDS: ONDANSETRON 4 MG INJ IV ×3 (09:12→20:32)
[2019-05-30] MEDS: RIFABUTIN 150 MG CAP PO (16:58)
[2019-05-30] MEDS: ETHAMBUTOL 400 MG TAB PO (16:58)
[2019-05-30] MEDS: AZITHROMYCIN 500 MG TAB PO (16:58)
[2019-05-30] MEDS: OLANZAPINE 2.5 MG TAB PO (21:16)
[2019-05-30] MEDS: HYDROCODONE/APAP (5/325) TAB PO (21:20)
[2019-05-31 05:51] LABS: ANION GAP 7 (5-13); BLOOD UREA NITROGEN 26 mg/dl (7-20); CARBON DIOXIDE 26 mmol/L (21-31); CHLORIDE 101 mmol/L (97-110); CREATININE 1.43 mg/dl (0.61-1.24); GLUCOSE 96 mg/dl (70-220); POTASSIUM 5.2 mmol/L (3.5-5.1); SODIUM 134 mmol/L (135-144)
[2019-05-31 05:52] LABS: CALCIUM 9.4 mg/dl (8.4-10.2); Estimated GFR > 60 mL/min (>60); MAGNESIUM 1.8 mg/dl (1.7-2.5); PHOSPHORUS 5.5 mg/dl (2.5-4.9)
[2019-05-31] MEDS: ONDANSETRON 4 MG INJ IV ×2 (08:34→21:18)
[2019-05-31] MEDS: NYSTATIN SUSP 5 ML CUP PO ×4 (08:37→21:07)
[2019-05-31] MEDS: FLUCONAZOLE 200 MG TAB PO (08:37)
[2019-05-31] MEDS: TRIMETHOPRIM/SULFAMETHOX (DS) TAB PO (08:37)
[2019-05-31] MEDS: SODIUM CHLORIDE 1 GM TAB PO ×3 (08:37→21:07)
[2019-05-31] MEDS: HYDROCODONE/APAP (5/325) TAB PO ×2 (12:32→21:51)
[2019-05-31 16:12] LABS: CREATININE, RANDOM URINE 64 mg/dL (20-320); MICROALBUMIN 0.3 mg/dL; MICROALBUMIN/CREATININE RATIO 5 (<30)
[2019-05-31] MEDS: OLANZAPINE 2.5 MG TAB PO (21:08)
[2019-06-01 05:38] LABS: ANION GAP 8 (5-13); BLOOD UREA NITROGEN 26 mg/dl (7-20); CALCIUM 9.3 mg/dl (8.4-10.2); CARBON DIOXIDE 27 mmol/L (21-31); CHLORIDE 100 mmol/L (97-110); CREATININE 1.43 mg/dl (0.61-1.24); Estimated GFR > 60 mL/min (>60); GLUCOSE 92 mg/dl (70-220); MAGNESIUM 1.7 mg/dl (1.7-2.5); PHOSPHORUS 5.7 mg/dl (2.5-4.9); POTASSIUM 5.6 mmol/L (3.5-5.1); SODIUM 135 mmol/L (135-144)
[2019-06-01] MEDS: ONDANSETRON 4 MG INJ IV ×2 (08:54→16:11)
[2019-06-01] MEDS: SODIUM CHLORIDE 1 GM TAB PO ×3 (08:56→16:14)
[2019-06-01] MEDS: NYSTATIN SUSP 5 ML CUP PO ×4 (08:57→20:34)
[2019-06-01] MEDS: FLUCONAZOLE 200 MG TAB PO (08:57)
[2019-06-01] MEDS: TRIMETHOPRIM/SULFAMETHOX (DS) TAB PO (08:57)
[2019-06-01] MEDS: NA POLYST SULFON 15 GM/60 ML BTL PO (10:31)
[2019-06-01] MEDS: RIFABUTIN 150 MG CAP PO (16:15)
[2019-06-01] MEDS: ETHAMBUTOL 400 MG TAB PO (16:15)
[2019-06-01] MEDS: HYDROCODONE/APAP (5/325) TAB PO ×2 (16:16→22:58)
[2019-06-01] MEDS: AZITHROMYCIN 500 MG TAB PO (16:16)
[2019-06-01] MEDS: OLANZAPINE 2.5 MG TAB PO (20:34)
[2019-06-02 06:21] LABS: ANION GAP 7 (5-13); BLOOD UREA NITROGEN 29 mg/dl (7-20); CALCIUM 9.2 mg/dl (8.4-10.2); CARBON DIOXIDE 27 mmol/L (21-31); CHLORIDE 100 mmol/L (97-110); CREATININE 1.44 mg/dl (0.61-1.24); Estimated GFR > 60 mL/min (>60); GLUCOSE 87 mg/dl (70-220); MAGNESIUM 1.6 mg/dl (1.7-2.5); PHOSPHORUS 5.5 mg/dl (2.5-4.9); POTASSIUM 5.3 mmol/L (3.5-5.1); SODIUM 134 mmol/L (135-144)
[2019-06-02] MEDS: ONDANSETRON 4 MG INJ IV ×2 (08:34→20:31)
[2019-06-02] MEDS: MAGNESIUM SULFATE 2 GM/50 ML 50 ML IVPB (08:36)
[2019-06-02] MEDS: FLUCONAZOLE 200 MG TAB PO (09:58)
[2019-06-02] MEDS: SODIUM CHLORIDE 1 GM TAB PO ×3 (09:59→20:31)
[2019-06-02] MEDS: NYSTATIN SUSP 5 ML CUP PO ×4 (09:59→20:31)
[2019-06-02] MEDS: SOD CHLORIDE 0.9% 250 ML IV* (10:35)
[2019-06-02] MEDS: HYDROCODONE/APAP (5/325) TAB PO ×2 (14:34→21:52)
[2019-06-02 17:33] LABS: IMMEDIATE SPIN CROSSMATCH 1 1
[2019-06-02] MEDS: OLANZAPINE 2.5 MG TAB PO (20:31)
[2019-06-03 05:53] LABS: ADD MAN DIFF? NO
[2019-06-03 06:05] LABS: WHITE BLOOD COUNT 2.4 10^3/ul (4.8-10.8)
[2019-06-03 06:05] LABS: ABNORMAL IP MESSAGE 1; BASOPHILS % 0.8 % (0.0-2.0); EOSINOPHILS # 0.1 10^3/ul (0.0-0.5); HEMATOCRIT 28.9 % (42.0-52.0); HEMOGLOBIN 9.2 g/dl (14.0-18.0); LYMPHOCYTES # 0.4 10^3/ul (0.8-2.9); LYMPHOCYTES % 17.3 % (15.0-51.0); MEAN CORPUSCULAR HEMOGLOBIN 27.5 pg (29.0-33.0); MEAN CORPUSCULAR HGB CONC 31.8 g/dl (32.0-37.0); MEAN CORPUSCULAR VOLUME 86.5 fl (82.0-101.0); MEAN PLATELET VOLUME 10.3 fl (7.4-10.4); MONOCYTE # 0.3 10^3/ul (0.3-0.9); MONOCYTES % 13.9 % (0.0-11.0); NEUTROPHIL # 1.5 10^3/ul (1.6-7.5); NEUTROPHILS % 64.2 % (39.0-77.0); PLATELET COUNT 296 10^3/UL (140-415); POSITIVE DIFF @See below; RED BLOOD COUNT 3.34 10^6/ul (4.70-6.10); RED CELL DISTRIBUTION WIDTH 14.2 % (11.5-14.5)
[2019-06-03 06:35] LABS: ANION GAP 7 (5-13); BLOOD UREA NITROGEN 28 mg/dl (7-20); CALCIUM 9.2 mg/dl (8.4-10.2); CARBON DIOXIDE 26 mmol/L (21-31); CHLORIDE 102 mmol/L (97-110); CREATININE 1.21 mg/dl (0.61-1.24); Estimated GFR > 60 mL/min (>60); GLUCOSE 89 mg/dl (70-220); MAGNESIUM 1.9 mg/dl (1.7-2.5); PHOSPHORUS 4.9 mg/dl (2.5-4.9); POTASSIUM 5.1 mmol/L (3.5-5.1); SODIUM 135 mmol/L (135-144)
[2019-06-03] MEDS: ONDANSETRON 4 MG INJ IV (08:46)
[2019-06-03] MEDS: SODIUM CHLORIDE 1 GM TAB PO ×2 (08:48→12:24)
[2019-06-03] MEDS: NYSTATIN SUSP 5 ML CUP PO ×2 (08:48→12:24)
[2019-06-03] MEDS: FLUCONAZOLE 200 MG TAB PO (08:48)
== END 2019-06-03 13:13 | disposition home or self-care (01) | DRG 97 ==
LOC: E/R 15:59 → 6WM 05-23 15:00
PROC: 30233N1 Transfusion of Nonautologous Red Blood Cells into Peripheral Vein, Percutaneous Approach (ICD-10-PCS; principal; 2019-05-23)
DX: B45.1 Cerebral cryptococcosis (principal); E43 Unspecified severe protein-calorie malnutrition; J16.8 Pneumonia due to other specified infectious organisms; B20 Human immunodeficiency virus [HIV] disease; Z68.1 Body mass index [BMI] 19.9 or less, adult; R64 Cachexia; N17.9 Acute kidney failure, unspecified; B37.0 Candidal stomatitis; A31.0 Pulmonary mycobacterial infection; E22.2 Syndrome of inappropriate secretion of antidiuretic hormone; R44.0 Auditory hallucinations; K21.9 Gastro-esophageal reflux disease without esophagitis; R74.0 Nonspecific elevation of levels of transaminase and lactic acid dehydrogenase [LDH]; D50.9 Iron deficiency anemia, unspecified; Z59.0 Homelessness; F17.200 Nicotine dependence, unspecified, uncomplicated; F12.90 Cannabis use, unspecified, uncomplicated; F31.9 Bipolar disorder, unspecified; E87.5 Hyperkalemia; E83.42 Hypomagnesemia; T36.7X5A Adverse effect of antifungal antibiotics, systemically used, initial encounter; T37.8X5A Adverse effect of other specified systemic anti-infectives and antiparasitics, initial encounter
CPT/HCPCS: 36430; 76775; 80048; 80076; 81003; 82043; 82533; 83036; 83605; 83735; 83935; 84100; 84145; 84153; 84154; 84155; 84300; 84560; 85014; 85018; 85025; 86850; 86870; 86880; 86885; 86900; 86901; 86920; 87040-91; 87070; 87086; 87556; 97161; 99285-25